=== PATIENT | male | born 1985 | race Hispanic/Latino ===

== ENCOUNTER 2018-03-30 18:32 | Emergency (ER) | payer SELFPAY ==
[2018-03-30] MEDS ORDERED: TETANUS & DIPHTHERIA TOX,ADULT 0.5 ML VIAL ONE (19:07)
[2018-03-30] MEDS ORDERED: NA CHLORIDE 0.9% 1,000 ML ONE (19:07)
[2018-03-30 19:25] LABS: Absolute Lymphocytes (CBC) 3.1 K/uL (0.7-4.9); Absolute Monocytes 0.9 K/uL (0.1-1.3); Absolute Neutrophil 6.8 K/uL (1.8-8.0); Basophils % 0.5 % (0-1.3); Eosinophils % 1.8 % (0-4.4); Hematocrit 36.5 % (39.6-49.0); MCV 86.5 fL (80-100); MPV 8.7 fL (7.6-11.3); Monocytes % 8.4 % (3.3-12.3); RBC Red Blood Cell Count 4.22 M/uL (4.33-5.43)
[2018-03-30 19:42] LABS: ALT/SGPT 15 U/L (12-78); AST/SGOT 15 U/L (15-37); Albumin 2.8 g/dL (3.4-5.0); Alkaline Phosphatase 97 U/L (45-117); BUN Blood Urea Nitrogen 20 mg/dL (7-18); Bicarbonate 31 mmol/L (21-32); Bilirubin Direct < 0.1 mg/dL (0-0.2); Bilirubin Total 0.3 mg/dL (0.2-1.0); Glucose Level 262 mg/dL (74-106); Potassium 3.9 mmol/L (3.5-5.1); Protein, Total 8.1 g/dL (6.4-8.2); Sodium Level 136 mmol/L (136-145)
[2018-03-30] MEDS ORDERED: SMZ./TMP. 800/160 MG TABLET ONE (20:37)
[2018-03-30] MEDS ORDERED: CLINDAMYCIN 900MG/D5W 900 MG/50 ML BAG IV ONE (20:37)
--- NOTE | 2018-03-30 20:43 | ER ---
Nurse's Notes [facility] Name: Rigo Martinez Age: 33 yrs Sex: Male : 1985 Arrival Date: 03/30/2018 Time: 18:34 Bed 28 Private MD: Out, [facility] Diagnosis: Cellulitis of right lower limb-Foot;Elevated blood glucose level Presentation: 03/30 18:38 Presenting complaint: Patient states: "I got an infection on my toe (right) for a week lk1 now.". Transition of care: patient was not received from another setting of care. Onset of symptoms was March 23, 2018. Risk Assessment: Do you want to hurt yourself or someone else? Patient reports no desire to harm self or others. Initial Sepsis Screen: Does the patient meet any 2 criteria? No. Patient's initial sepsis screen is negative. Does the patient have a suspected source of infection? No. Patient's initial sepsis screen is negative. Care prior to arrival: None. 18:38 Method Of Arrival: Ambulatory lk1 18:38 Acuity: HECTOR 3 lk1 Historical: - Allergies: 18:40 Ibuprofen; lk1 - PMHx: 18:40 None; lk1 - PSHx: 18:40 right ear; right knee; lk1 - Immunization history:: Adult Immunizations up to date. - Social history:: Smoking status: Patient/guardian denies using tobacco, the patient reports quitting approximately 1 years ago. - Ebola Screening: : No symptoms or risks identified at this time. Screenin:25 Abuse screen: Denies threats or abuse. Nutritional screening: No deficits noted. mb3 Tuberculosis screening: No symptoms or risk factors identified. Fall Risk None identified. Assessment: 19:26 General: Appears in no apparent distress. comfortable, Behavior is calm, cooperative, mb3 appropriate for age. Pain: Complains of pain in ball of right foot, right fourth toe and Right fourth toenail. Neuro: No deficits noted. Level of Consciousness is awake, alert, obeys commands, Oriented to person, place, time, situation, Appropriate for age. Cardiovascular: No deficits noted. Respiratory: No deficits noted. GI: No deficits noted. No signs and/or symptoms were reported involving the gastrointestinal system. : No deficits noted. No signs and/or symptoms were reported regarding the genitourinary system. Derm: Skin healing sore on right knee that is scabbed over. Healing sore on top of right foot. 4th toe of right foot swollen, open and seeping serous fluid. Toe is swollen, purple with redness around base of toe and redness to top of foot. Musculoskeletal: Reports pain and swelling to right foot. Vital Signs: 18:40 BP 148 / 115; Pulse 93; Resp 16 S; Temp 98.3(O); Pulse Ox 98% on R/A; Weight 90.72 kg lk1 (R); Height 5 ft. 9 in. (175.26 cm) (R); Pain 5/10; 19:39 BP 94 / 71; Pulse 91; Resp 16; Pulse Ox 97% on R/A; mb3 20:28 BP 109 / 85; Pulse 90; Resp 16; Pulse Ox 97% on R/A; mb3 18:40 Body Mass Index 29.53 (90.72 kg, 175.26 cm) lk1 ED Course: 18:34 Patient arrived in ED. sb2 18:35 Out, of [facility] is Private Physician. sb2 18:39 Triage completed. lk1 18:42 Elkin Denney PA is PHCP. cp 18:42 Eder Walls MD is Attending Physician. cp 18:42 Arm band placed on right wrist. lk1 19:03 Woody Russo, JAZMINE is Primary Nurse. mb3 19:10 Inserted saline lock: 18 gauge in left antecubital area, using aseptic technique. Blood mb3 collected. 19:30 Initial lab(s) drawn, by me, sent to lab. tt1 19:38 Patient has correct armband on for positive identification. Bed in low position. Call mb3 light in reach. Side rails up X 1. inspector firearms on. Pulse ox on. NIBP on. 20:15 XRAY Foot RIGHT 3 View In Process Unspecified. EDMS 20:40 Cosmo Munoz DPM is Referral Physician. cp 20:56 No provider procedures requiring assistance completed. IV discontinued, intact, mb3 bleeding controlled, No redness/swelling at site. Pressure dressing applied. Wound care: to cellulitis located on left foot was cleaned with soap and water, irrigated with normal saline, dressed with Neosporin, 4X4s, Kerlix, cling, Patient tolerated well. Administered Medications: 19:12 Drug: NS 0.9% 1000 ml Route: IV; Rate: 1 bolus; Site: left antecubital; mb3 20:39 Follow up: Response: No adverse reaction; IV Status: Completed infusion; IV Intake: mb3 1000ml 19:15 Drug: Tetanus-Diphtheria Toxoid Adult 0.5 ml {Industrial Real [employer] Agent: [employer]. Exp: mb3 05/29/2020. Lot #: [id number]. } Route: IM; Site: left deltoid; 20:39 Follow up: Response: No adverse reaction mb3 20:38 Drug: Clindamycin 900 mg Route: IVPB; Infused Over: 30 mins; Site: left antecubital; mb3 20:59 Follow up: Response: No adverse reaction; IV Status: Completed infusion; IV Intake: [id number] 20:38 Drug: Bactrim (160 mg-800 mg (DS) 2 tablet Route: PO; mb3 20:41 Follow up: Response: No adverse reaction mb3 Intake: 20:39 IV: 1000ml; Total: 1000ml. mb3 20:59 IV: 50ml; Total: 1050ml. mb3 Outcome: 20:42 Discharge ordered by MD. cp 20:58 Discharged to home via wheelchair, with family. mb3 20:58 Condition: stable 20:58 Discharge instructions given to patient, family, Instructed on discharge instructions, follow up and referral plans. medication usage, wound care, Demonstrated understanding of instructions, follow-up care, medications, wound care, Prescriptions given X 3. 20:59 Patient left the ED. mb3 Addendum: 04/02/2018 07:24 Addendum: Culture Results: Positive wound culture. No further action required. Bacteria s s sensitive to prescribed antibiotic. Signatures: Dispatcher [employer] EDMS Senait Kirby RN RN ss Elkin Denney PA PA cp Thymes, Tracy tt1 Brisa Boswell RN RN lk1 Anastasiia Abad sb2 Woody Russo RN RN mb3
--- NOTE | 2018-03-30 20:43 | EDPHYS ---
Physician Documentation [facility] Name: Rigo Martinez Age: 33 yrs Sex: Male : 1985 Arrival Date: 03/30/2018 Time: 18:34 Bed 28 Private MD: Out, [facility] ED Physician Eder Walls HPI: 03/30 19:04 This 33 yrs old Male presents to ER via Ambulatory with complaints of Toe cp Injury - Infection. 19:04 The patient presents with an injury, cellulitis. The complaints affect the right foot. cp Context: Patient reports right foot was stepped on by horse 1 week ago and since has noticed purulent drainage, erythema and swelling. Onset: The symptoms/episode began/occurred 1 week(s) ago. Associated signs and symptoms: Pertinent positives: swelling, warmth, Pertinent negatives: calf tenderness, fever. Historical: - Allergies: 18:40 Ibuprofen; lk1 - PMHx: 18:40 None; lk1 - PSHx: 18:40 right ear; right knee; lk1 - Immunization history:: Adult Immunizations up to date. - Social history:: Smoking status: Patient/guardian denies using tobacco, the patient reports quitting approximately 1 years ago. - Ebola Screening: : No symptoms or risks identified at this time. ROS: 19:07 Eyes: Negative for injury, pain, redness, and discharge. cp 19:07 Constitutional: Negative for body aches, chills, fever, poor PO intake. 19:07 ENT: Negative for drainage from ear(s), ear pain, sore throat, difficulty swallowing, difficulty handling secretions. 19:07 Cardiovascular: Negative for chest pain, palpitations. 19:07 Respiratory: Negative for cough, shortness of breath, wheezing. 19:07 Abdomen/GI: Negative for abdominal pain, nausea, vomiting, and diarrhea. 19:07 MS/extremity: Positive for erythema, pain, swelling, tenderness, warmth, of the right foot, Negative for deformity. 19:07 All other systems are negative. Exam: 19:12 Constitutional: The patient appears in no acute distress, alert, awake, cp non-diaphoretic, non-toxic, well developed, well nourished. 19:12 Head/Face: Normocephalic, atraumatic. cp Vital Signs: 18:40 BP 148 / 115; Pulse 93; Resp 16 S; Temp 98.3(O); Pulse Ox 98% on R/A; Weight 90.72 kg lk1 (R); Height 5 ft. 9 in. (175.26 cm) (R); Pain 5/10; 19:39 BP 94 / 71; Pulse 91; Resp 16; Pulse Ox 97% on R/A; mb3 20:28 BP 109 / 85; Pulse 90; Resp 16; Pulse Ox 97% on R/A; mb3 18:40 Body Mass Index 29.53 (90.72 kg, 175.26 cm) lk1 MDM: 18:42 Patient medically screened. cp 20:37 Data reviewed: vital signs, nurses notes, lab test result(s), radiologic studies, plain cp films. Test interpretation: by ED physician or midlevel provider: plain radiologic studies. Counseling: I had a detailed discussion with the patient and/or guardian regarding: the historical points, exam findings, and any diagnostic results supporting the discharge/admit diagnosis, lab results, radiology results, the need for outpatient follow up, for definitive care, a family practitioner, wound care, to return to the emergency department if symptoms worsen or persist or if there are any questions or concerns that arise at home. 03/30 19:02 Order name: Wound Culture 03/30 19:02 Order name: Basic Metabolic Panel; Complete Time: 19:49 cp 03/30 19:50 Interpretation: Normal except: GLUC 262; BUN 20. 03/30 19:02 Order name: Blood Culture Adult (2) 03/30 19:02 Order name: CBC with Diff; Complete Time: 19:40 cp 03/30 19:40 Interpretation: Normal except: WBC 11.1; RBC 4.22; HGB 12.2; HCT 36.5; RDW 11.5. cp 03/30 19:02 Order name: Lactate; Complete Time: 19:49 cp 03/30 19:50 Interpretation: Within normal limits: LAC 1.4. cp 03/30 19:02 Order name: LFT's; Complete Time: 19:49 cp 03/30 19:50 Interpretation: Normal except: ALB 2.8; GLOB 5.3; A/G 0.5. cp 03/30 19:02 Order name: XRAY Foot RIGHT 3 View cp 03/30 19:02 Order name: Procalcitonin; Complete Time: 20:36 03/30 20:37 Interpretation: Reviewed. 03/30 19:02 Order name: Cardiac monitoring; Complete Time: 21:00 03/30 19:02 Order name: IV Saline Lock - Large Bore; Complete Time: 21:00 03/30 19:02 Order name: Labs collected and sent; Complete Time: 21:00 03/30 19:02 Order name: O2 Per Protocol; Complete Time: 19:04 03/30 19:02 Order name: O2 Sat Monitoring; Complete Time: 19:04 cp Administered Medications: 19:12 Drug: NS 0.9% 1000 ml Route: IV; Rate: 1 bolus; Site: left antecubital; mb3 20:39 Follow up: Response: No adverse reaction; IV Status: Completed infusion; IV Intake: mb3 1000ml 19:15 Drug: Tetanus-Diphtheria Toxoid Adult 0.5 ml {Family Practice Physician Assistant: [employer]. Exp: mb3 05/29/2020. Lot #: [id number]. } Route: IM; Site: left deltoid; 20:39 Follow up: Response: No adverse reaction mb3 20:38 Drug: Clindamycin 900 mg Route: IVPB; Infused Over: 30 mins; Site: left antecubital; mb3 20:59 Follow up: Response: No adverse reaction; IV Status: Completed infusion; IV Intake: [id number] 20:38 Drug: Bactrim (160 mg-800 mg (DS) 2 tablet Route: PO; mb3 20:41 Follow up: Response: No adverse reaction mb3 Disposition: 03/31 10:11 Co-signature as Attending Physician, Eder Walls MD. Disposition: 03/30/18 20:42 Discharged to Home. Impression: Cellulitis of right lower limb - Foot, Elevated blood glucose level. - Condition is Stable. - Discharge Instructions: Cellulitis, Blood Glucose Monitoring, Adult. - Prescriptions for Clindamycin HCl 300 mg Oral Capsule - take 1 capsule by ORAL route every 6 hours for 10 days; 40 capsule. Tramadol 50 mg Oral Tablet - take 1 tablet by ORAL route every 8 hours as needed; 12 tablet. Bactrim DS 800- 160 mg Oral Tablet - take 1 tablet by ORAL route every 12 hours for 10 days; 20 tablet. - Medication Reconciliation Form, Thank You Letter, Antibiotic Education, Prescription Opioid Use form. - Follow up: Private Physician; When: 48 Hours; Reason: elevated glucose. Follow up: Cosmo Munoz DPM; When: 48 Hours; Reason: recheck of foot infection. - Problem is new. - Symptoms have improved. Signatures: Dispatcher [employer] EDMS Elkin Denney PA PA cp Kluge, Leah RN RN lk1 Eder Walls MD MD gs Woody Russo RN RN mb3 Corrections: (The following items were deleted from the chart) 03/30 20:59 20:42 03/30/2018 20:42 Discharged to Home. Impression: Cellulitis of right lower limb - mb3 Foot; Elevated blood glucose level. Condition is Stable. Forms are Medication Reconciliation Form, Thank You Letter, Antibiotic Education, Prescription Opioid Use. Follow up: Private Physician; When: 48 Hours; Reason: elevated glucose. Follow up: Cosmo Munoz; When: 48 Hours; Reason: recheck of foot infection. Problem is new. Symptoms have improved. cp
--- NOTE | 2018-03-30 21:00 | RAD REPORT ---
EXAM DESCRIPTION: RAD - Foot Right 3 View - 03/30/2018 8:15 pm CLINICAL HISTORY: horse stepped on foot 1 week ago, cellulitis Pain and swelling COMPARISON: No comparisons FINDINGS: Soft tissue swelling is seen about the fourth toe. Subtle demineralization along the regio n of swelling involving the middle phalanx suggests early osteomyelitis is possible. MR imaging of th e foot would be suggested for followup.
[2018-03-30 21:02] VITALS: TEMP 98.3
[2018-03-30 21:03] VITALS: O2SAT 97
[2018-03-30 21:05] VITALS: BP 109/85
== END 2018-03-30 20:59 | disposition home or self-care (01) ==
LOC: ER 18:32
DX: L03.115 Cellulitis of right lower limb (principal); R73.9 Hyperglycemia, unspecified; Z88.6 Allergy status to analgesic agent; Z87.891 Personal history of nicotine dependence
CPT/HCPCS: 36415; 80048; 80076; 82962; 83605; 84145; 85025; 87040; 87070; 87077; 87186; 87205; 90714; 96361; 96365; 99285; J7030